=== PATIENT | male | born 1960 | race Caucasian/White ===

== ENCOUNTER 2021-06-01 07:58 | Day surgery (SDC) | payer BC ==
[~2021-06-01] VITALS: Ht 177.8 cm; Wt 90.9 kg
[2021-06-01 08:48] VITALS: BP 140/83; PULSE 50; TEMP 97.7
[2021-06-01] MEDS ORDERED: PROTONIX20 MG PO (09:00)
[2021-06-01] MEDS ORDERED: PRINIVIL10 MG PO (09:01)
[2021-06-01 09:07] LABS: ALBUMIN 4.3 gm/dL (3.5-5.0); CALCIUM 9.2 mg/dL (8.4-10.2); CREATININE, serum 0.85 (0.66-1.25); POTASSIUM 4.1 mmol/L (3.4-5.0)
[2021-06-01] MEDS ORDERED: PROBIOTIC BLEN1 EACH PO (09:20)
[2021-06-01] MEDS ORDERED: COZAAR100 MG PO (09:20)
[2021-06-01] MEDS ORDERED: COMPLETE SENIOR1 TA1 PO (09:21)
--- NOTE | 2021-06-01 09:30 | NUR ---
ROM FROM DIETARY INTO TALK WITH PATIENT AND HIS .
--- NOTE | 2021-06-01 09:40 | NUR ---
KAY FROM TRANSITIONAL CARE NURSE INTO TALK WITH PATIENT AND HIS .
[2021-06-01 11:43] VITALS: BP 109/75; PULSE 63
--- NOTE | 2021-06-01 11:43 | NUR ---
TO RM 5 PER CART FROM OR. ALERT ORIENTED X3 TALKING TO STAFF AND . C/O PAIN2/10 AND DENIES NEED FOR PAIN MEDICATION. BINDER OVER PEG TUBE AND DRESSING OVER PEG TUBE. SKIN ADHESIVE OVER PORT A CATHETER SITE.
[2021-06-01] MEDS ORDERED: MOTRIN 600600 MG/TAB PO (11:47)
[2021-06-01] MEDS ORDERED: TYLENOL 325MG325 MG PO (11:47)
[2021-06-01 11:58] VITALS: BP 124/80; PULSE 52
--- NOTE | 2021-06-01 12:00 | NUR ---
RECEIVED WATER AND JELLO SITTING UP EATING AND TALKING TO .
[2021-06-01 12:13] VITALS: BP 127/70; PULSE 49
--- NOTE | 2021-06-01 12:15 | NUR ---
ATE 100% AND TOLERATED WELL.
[2021-06-01 12:25] VITALS: BP 142/73; PULSE 50
--- NOTE | 2021-06-01 12:30 | NUR ---
KAY TALKED TO PATIENT AND PATIENT OF PAPERWORK NEEDED SENT TO [facility].
[2021-06-01 12:45] VITALS: BP 139/74; PULSE 53
--- NOTE | 2021-06-01 12:45 | NUR ---
AMBULATED TO BATHROOM WITH MINIMAL ASSIST AND TOLERATED WELL.
--- NOTE | 2021-06-01 13:00 | NUR ---
INSTRUCTED PATIENT HOW TO USE PEG TUBE. DEMONSTRATED USING WATER HOW TO USE PEG TUBE. INSTRUCTED PATIENT ON PORT OF CATHETER . FOLLOW UP APPOINMENT APPOINTMENT AUG 2ND AT 3
--- NOTE | 2021-06-01 13:10 | NUR ---
RECEIVED DISCHARGE INSTRUCTIONS AND VERBALIZED UNDERSTANDING. DISCONTINUED IV AND INT- CATHETER INTACT.
--- NOTE | 2021-06-01 13:12 | NUR ---
c iron worker met with patient and spouse to secure feedings as patient had a feeding tube placed today. Worker provided options for companies that supply the feeding. Patient and spouse chose [facility] and worker gave them a referral and faxed clinical information. Patient will not be utilizing the feeding tube at this time. Spouse verbalized that she will make contact with [facility] to inquire about insurance coverage and any out of pocket expenses. Patient will discharge home today.
--- NOTE | 2021-06-01 13:35 | NUR ---
DISCHARGED PER WC BY NURSING STAFF TO PRIVATE CAR IN CARE OF .
== END 2021-06-01 13:55 | disposition home or self-care (01) ==
LOC: SDCO 07:58
PROVIDERS: Surgery
DX: C01 Malignant neoplasm of base of tongue (principal); K21.9 Gastro-esophageal reflux disease without esophagitis; E78.5 Hyperlipidemia, unspecified; E46 Unspecified protein-calorie malnutrition; I10 Essential (primary) hypertension; Z90.89 Acquired absence of other organs; Z85.21 Personal history of malignant neoplasm of larynx; Z79.899 Other long term (current) drug therapy; Z80.9 Family history of malignant neoplasm, unspecified
CPT/HCPCS: C1788; J0690; J1644; J2704; J3010; J7120

== ENCOUNTER 2021-06-02 08:18 | Outpatient (RCR) | payer BC ==
[~2021-06-02 08:18] MED LIST: COMPLETE SENIOR1 TA1 PO; COZAAR100 MG PO; MOTRIN 600600 MG/TAB PO; PRINIVIL10 MG PO; PROBIOTIC BLEN1 EACH PO; PROTONIX20 MG PO; TYLENOL 325MG325 MG PO
== END 2021-08-31 | disposition home or self-care (01) ==
LOC: WSST
DX: R13.12 Dysphagia, oropharyngeal phase (principal); C09.9 Malignant neoplasm of tonsil, unspecified